=== PATIENT | female | born 1985 | race Caucasian/White ===

== ENCOUNTER → 2019-06-04 16:28 | Observation (INO) ==
[2019-06-04 14:58] LABS: Amphetamine Screen,Urine Negative ng/mL (Cutoff=1000); Barbiturate Screen,Urine Negative ng/mL (Cutoff=200); Benzodiazepines Screen,Urine Negative ng/mL (Cutoff=200); Cannabinoid Screen,Urine Negative ng/mL (Cutoff = 50); Cocaine Screen,Urine Negative ng/mL (Cutoff= 300); Opiate Screen,Urine Negative ng/mL (Cutoff=300); Phencyclidine Screen,Urine Negative ng/mL (Cutoff=25)
[~2019-06-04 16:28] MED LIST: Ringers Solution, Lactated 1,000 ML IVC ONE; Ringers Solution, Lactated 1,000 ML ONE
== END | disposition home or self-care (01) ==
LOC: 1NENULAB
PROVIDERS: ADMIT Advanced Practice Midwife; ATTEND Advanced Practice Midwife

== ENCOUNTER 2019-06-07 07:34 | Inpatient (IN) ==
[2019-06-07] MEDS ORDERED: Ringers Solution, Lactated 1,000 ML ONE ×3 (07:59→09:15)
--- NOTE | 2019-06-07 08:01 | Anesthesia Evaluation PreOp ---
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: Other ([place], BMI 40) Other Medical History: Denies Any Significant HX Anesthesia History: No Prior Anesthetic Complications, Past Anesthesia (previous epidural conversion to , no known family comp) Alcohol Use: none Drug use: none Medications and Allergies Pnv Plus Multivit Tab 1 tab PO DAILY 06/04/19 [History] metFORMIN 1,000 mg PO BID 06/04/19 [History] Allergy/AdvReac Type Severity Reaction Status Date / Time No Known Allergies Allergy Verified 06/07/19 08:14 Anesthesia Exam - HEENT Pupil (Motor): Pupils equal Mallampati: II Teeth: Normal Oral Opening: Greater than 3 - 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
[2019-06-07] MEDS ORDERED: *HR* Oxytocin 10 UNIT/ML VIAL IM ONE (08:10)
[2019-06-07] MEDS ORDERED: *HR* Morphine Sulfate/PF 10 MG/10 ML AMPUL ONE (08:11)
[2019-06-07] MEDS ORDERED: *HR* FentaNYL (PF) 100 MCG/2 ML VIAL ONE (08:11)
[2019-06-07] MEDS ORDERED: EPHEDrine 50 MG/ML VIAL ONE (08:12)
[2019-06-07] MEDS ORDERED: Lidocaine -MPF 2% 5 ML VIAL ONE (08:13)
[2019-06-07] MEDS ORDERED: Metoclopramide 10 MG/2 ML VIAL IVP ONE (08:25)
[2019-06-07] MEDS ORDERED: CeFAZolin Syr 3,000MG/30 ML 3,000 MG/30 ML SYRINGE IVPB ONE (08:25)
[2019-06-07] MEDS ORDERED: Oxytocin 20 units/ LR 1000 mL 20 UNIT/1,000 ML BAG IVC ONE (08:25)
[2019-06-07] MEDS ORDERED: Famotidine 20 MG/2 ML VIAL IVP ONE (08:25)
[2019-06-07] MEDS ORDERED: Oxytocin 20 units/ LR 1000 mL 20 UNIT/1,000 ML BAG IVC SCH ×2 (08:30→19:51)
[2019-06-07 08:50] LABS: Basophils % 0.1 %; Eosinophils # 0.1 K/mcL (0.0-0.6); Eosinophils % 0.7 %; Hematocrit 31.6 % (35.3-44.9); Hemoglobin 10.2 g/dL (11.5-15.4); Immature Granulocytes % 0.4 % (0-4); Lymphocytes # 1.6 K/mcL (0.6-4.6); Lymphocytes % 21.7 %; Mean Corpuscular HGB Conc 32.3 g/dL (31.6-35.5); Mean Corpuscular Hemoglobin 28.3 pg (28.0-33.3); Mean Corpuscular Volume 87.8 fL (83.0-100.0); Monocytes # 0.5 K/mcL (0.0-1.3); Monocytes % 6.6 %; Neutrophils # 5.1 K/mcL (1.6-8.9); Platelet Count 176 K/mcL (140-400); Red Cell Distribution Width 16.3 % (11.5-14.5); Segmented Neutrophils % 70.5 %; White Blood Count 7.3 K/mcL (4.3-11.1)
[2019-06-07 08:58] LABS: Amphetamine Screen,Urine Negative ng/mL (Cutoff=1000); Barbiturate Screen,Urine Negative ng/mL (Cutoff=200); Benzodiazepines Screen,Urine Negative ng/mL (Cutoff=200); Cannabinoid Screen,Urine Negative ng/mL (Cutoff = 50); Cocaine Screen,Urine Negative ng/mL (Cutoff= 300); Opiate Screen,Urine Negative ng/mL (Cutoff=300); Phencyclidine Screen,Urine Negative ng/mL (Cutoff=25)
--- NOTE | 2019-06-07 09:26 | OB/GYN History & Physical ---
Date of Encounter: 06/07/19 Time of Encounter: 09:24 Assessment and Plan (1) Previous section Current visit: Yes Status: Chronic (2) Gestational diabetes Current visit: Yes Status: Chronic Qualifiers: Gestational diabetes mellitus control: oral hypoglycemic-controlled Trimester: third trimester Qualified Code(s): O24.415 - Gestational diabetes mellitus in , controlled by oral hypoglycemic drugs (3) 39 weeks gestation of Current visit: No Status: Chronic History of Present Illness HPI: Ms. Chapin is a 33 year old female Patient is a 33-year-old 2 para 1 white female at 39 weeks admitted for repeat low transverse section. She been followed in my office with her gestational diabetes has been controlled on metformin 1000 twice a day. She denies spontaneous rupture membranes vaginal bleeding. She reports active fetus. She denies contractions. Past Med Surg Social Fam HX - Past Medical History Medical history: no medical history Psychiatric history: no psych history - Past Surgical History Surgical History: no surgical history Additional surgical history: . Hernia repair as a child - Social History Smoking Status: Never smoker Smokeless Tobacco Status: No Alcohol use: none Drug use: none - Family History Mother Living Status: Still Living Hx Family Cardiac Disorders: No Hx Family Respiratory Disorders: Yes (copd) Hx Family Endocrine Disorder: Yes (Borderline DM) Obstetrical History - Pregnancies : 2 Para: 1 Medications and Allergies Pnv Plus Multivit Tab 1 tab PO DAILY 06/04/19 [History] metFORMIN 1,000 mg PO BID 06/04/19 [History] 3 Allergy/AdvReac Type Severity Reaction Status Date / Time No Known Allergies Allergy Verified 06/07/19 08:14 Review of System OB All systems PM: reviewed and no additional remarkable complaints except as stated - Genitourinary Genitourinary: amenorrhea - Menstruation Menstruation: amenorrhea Exam - Constitutional Constitutional: well developed, well nourished, no acute distress, obese - HEENT HEENT: Normocephaly - Neck Neck exam: full ROM - Lungs Respiratory exam: CTAB - Cardiovascular Cardiovascular exam: RRR - Abdomen Abdomen: Present: bowel sounds normal, gravid, non tender - Extremities Extremities exam: full ROM Deep Tendon Reflex Grade: 2+ Normal Results Result Diagrams: 06/07/19 08:40 Abnormal lab results RBC 3.60 M/mcL (3.82-4.97) L 06/07/19 08:40 Hgb 10.2 g/dL (11.5-15.4) L 06/07/19 08:40 Hct 31.6 % (35.3-44.9) L 06/07/19 08:40 RDW 16.3 % (11.5-14.5) H 06/07/19 08:40 All other labs normal. - Attending Attestation paula armstrong md [facility]
[2019-06-07] MEDS ORDERED: ceFAZolin 2,000 MG in Water for inj. (sterile) 20 ML IVP ONE (09:39)
--- NOTE | 2019-06-07 11:19 | OB/GYN Procedure Note ---
Section - Date of procedure: 06/07/19 Preop diagnosis: desires repeat Post-op diagnosis: same Procedure: repeat low transverse Surgeon: Joss Pino Blood Loss: 500 Was there an ophthalmic medical assistant present: No Anesthesia Type: Spinal section complications: none Disposition: PACU Specimens: Placenta - Infant (s) A Infant Delivery Date: 06/07/19 Infant Delivery Time: 10:16 Presentation: vertex Position: OA Gender: Female Viability: Viable Pounds: 7 Ounces: 12 at 1 minute: 8 at 5 minutes: 9 Shoulder Dystocia: not encountered Placenta: complete extraction Cord: nuchal cord, nuchal reduced - Narrative Narrative: Patient was taken to the operating room. After satisfactory spinal anesthesia was achieved, patient placed in supine position Short catheter inserted and prepped and draped in usual manner. After appropriate timeout abdomen was entered through standard Maylard incision. The Arline retractor was placed. Peritoneum overlying the lower uterine segment was incised in U-shaped fashion. Uterine cavity was entered sharply and extended laterally. Fluid was clear. With fundal pressure the head was delivered. Nuchal cord was loose and was relieved. Shoulders torso remainder the were delivered. The umbilical cord double clamped and cut and the was handed to nursery staff for further evaluation. Placenta was removed. Uterus was brought from within the abdominal cavity. Uterus closed with 0 Monocryl in a single layer. After assurance hemostasis, uterus placed back within the abdominal cavity. Retractor was removed. A 0 strata fix PDS was used on the fascia. Subcutaneous reapproximated with a 2-0 Monocryl. 3-0 Monocryl was used on the skin. Sterile dressing was applied. Patient did well was taken to recovery room in satisfactory condition. Counts were correct.
--- NOTE | 2019-06-07 17:25 | Anesthesia Evaluation Post Op ---
Date of Encounter: 06/07/19 Time of Encounter: 14:15 - Vital Signs Vital Signs: vss - Lungs Lungs: Clear Ascult./Percussion - Airway Airway: Non-obstructed - Cardiovascular Baseline Rhythm - Mental Status Mental Status: Alert & Oriented, Answers Appropriately - Pain Pain Scale used: Aaliyah (Faces) - Nausea Vomiting Nausea Vomiting: Not Present - Hydration Hydration: Tolerates oral liquids - Discharge PostOp Status: Transfer Patient to floor
[2019-06-07] MEDS ORDERED: Metoclopramide 10 MG/2 ML VIAL IVP PRN (19:51)
[2019-06-07] MEDS ORDERED: Ondansetron 4 MG/2 ML VIAL IVP PRN (19:51)
[2019-06-07] MEDS ORDERED: Sennosides 8.6 MG TABLET PO PRN (19:51)
[2019-06-07] MEDS ORDERED: Rho Immune Globulin 1,500 UNIT SYRINGE IM PRN (19:51)
[2019-06-08] MEDS: Ibuprofen 600 MG TABLET PO SCH ×3 (00:58→19:10)
[2019-06-08] MEDS: Acetaminophen 325 MG TABLET PO SCH ×2 (00:59→06:05)
[2019-06-08] MEDS ORDERED: Lanolin 7 G OINT...G. TP PRN (01:00)
[2019-06-08] MEDS: *HR* OxyCODONE/APAP 5/325 TABLET PO PRN ×3 (06:05→19:11)
[2019-06-08 08:13] LABS: Eosinophils # 0.1 K/mcL (0.0-0.6); Hematocrit 31.4 % (35.3-44.9); Hemoglobin 9.9 g/dL (11.5-15.4); Immature Granulocytes % 0.5 % (0-4); Lymphocytes # 1.2 K/mcL (0.6-4.6); Mean Corpuscular HGB Conc 31.5 g/dL (31.6-35.5); Mean Corpuscular Hemoglobin 28.4 pg (28.0-33.3); Mean Corpuscular Volume 90.2 fL (83.0-100.0); Monocytes # 0.3 K/mcL (0.0-1.3); Monocytes % 5.9 %; Neutrophils # 4.2 K/mcL (1.6-8.9); Platelet Count 167 K/mcL (140-400); Red Blood Count 3.48 M/mcL (3.82-4.97); Red Cell Distribution Width 16.5 % (11.5-14.5); Segmented Neutrophils % 72.6 %; White Blood Count 5.8 K/mcL (4.3-11.1)
[2019-06-08] MEDS ORDERED: NON-FORMULARY MEDICATION 1 EACH EACH (Pnv Prenatal Plus Multivit Tab 1 TAB) PO SCH (09:00)
[2019-06-08] MEDS: Prenatal Vit/FA 1 EACH TABLET PO SCH (12:53)
--- NOTE | 2019-06-08 16:17 | OB/GYN Progress Note ---
Date of Encounter: 06/08/19 Time of Encounter: 16:15 - Assessment and Plan (1) Status post repeat low transverse section Current Visit: Yes Status: Acute Continue routine /postop care meeting day 1 milestones (2) Breast feeding status of mother Current Visit: Yes Status: Acute support prn Subjective - Subjective Principal diagnosis: status post repeat c/s Interval history: Patient postop day one. Patient doing well. Patient reports pain is well controlled. Patient ambulating without difficulty. Patient is breast feeding. Patient reports: appetite normal, voiding normally, pain well controlled, ambulating normally : doing well, nursing well Objective - Vital Signs Latest vital signs: Vital Signs Temp Pulse Resp BP Pulse Ox 06/08/19 08:18 98.4 F 81 16 115/71 96 06/08/19 00:57 98.1 F 86 16 102/60 96 06/07/19 21:35 98.7 F 85 16 98/59 96 06/07/19 16:30 97.6 F 73 16 118/73 98 Intake and Output 06/08/19 06/08/19 06/08/19 07:59 15:59 23:59 Output Total 2200 / 2700 500 / 2700 Balance -2200 / -2700 -500 / -2700 Output: Urine 500 / 500 Catheter 2200 / 2200 Other: Weight 103.782 kg Patient Weight 06/08/19 23:59 Weight 103.782 kg - Exam Lungs: bilateral: normal Chest: Normal S1, Normal S2 Extremities: Present: normal Abdomen: Present: normal appearance, soft, gravid Incision: Present: normal, dry, dressed (FUNMI) Uterus: Present: normal, firm Fundal Height: 2 (U/2) - Labs Labs: Laboratory Results - last 24 hr 06/08/19 06/08/19 07:52 07:52 WBC 5.8 RBC 3.48 L Hgb 9.9 L Hct 31.4 L MCV 90.2 MCH 28.4 MCHC 31.5 L RDW 16.5 H Plt Count 167 MPV 11.0 Immature Gran % 0.5 Seg Neutrophils % 72.6 Lymphocytes % 20.0 Monocytes % 5.9 Eosinophils % 1.0 Basophils % 0.0 Neutrophils # 4.2 Lymphocytes # 1.2 Monocytes # 0.3 Eosinophils # 0.1 Basophils # 0.0 Glucose 77
[2019-06-08] MEDS: Simethicone 80 MG TAB.CHEW PO PRN (19:11)
[2019-06-09] MEDS: *HR* OxyCODONE/APAP 5/325 TABLET PO PRN ×2 (01:16→10:35)
[2019-06-09] MEDS: Acetaminophen 325 MG TABLET PO SCH (01:16)
[2019-06-09 09:50] VITALS: BP 110/72
[2019-06-09] MEDS: Prenatal Vit/FA 1 EACH TABLET PO SCH (10:34)
[2019-06-09] MEDS: Ibuprofen 600 MG TABLET PO SCH (10:34)
[2019-06-09] MEDS: Simethicone 80 MG TAB.CHEW PO PRN (10:35)
--- NOTE | 2019-06-09 12:54 | Discharge Summary ---
Date of Encounter: 06/09/19 Time of Encounter: 12:52 - Discharge Diagnosis (1) Status post repeat low transverse section Priority: Primary Status: Acute Comments: Patient meeting day two milestones. Pain well-controlled with prescribed medications. Voiding without difficulty, tolerating regular diet, bleeding light. No bowel movement yet. Anticipate discharge today OAR[facility] report reviewed and appropriate (2) Gestational diabetes Priority: Secondary Status: Chronic Comments: Follow up in 4-12 weeks for 2-hr GTT Qualifiers: Gestational diabetes mellitus control: oral hypoglycemic-controlled Trimester: third trimester Qualified Code(s): O24.415 - Gestational diabetes mellitus in , controlled by oral hypoglycemic drugs (3) Breast feeding status of mother Priority: Secondary Status: Acute Comments: support as needed. Patient has a breast pump at home. - Discharge Medications Prescriptions: New Ibuprofen [Motrin] 600 mg PO Q6HR #60 tablet OxyCODONE/APAP 5/325 [Percocet 5/325 MG] 1 each PO Q6H PRN 7 Days #28 tab PRN Reason: Moderate pain 4-6 Acetaminophen [Tylenol] 325 mg PO Q6HR tablet Docusate [Colace] 100 mg PO BID #60 capsule Simethicone [Gas-X] 80 mg PO TID PRN tab.chew PRN Reason: Dyspepsia Lanolin [Lansinoh] 1 appl TP TID PRN oint...g. PRN Reason: nipple pain Continued Pnv Plus Multivit Tab 1 tab PO DAILY Discontinued metFORMIN 1,000 mg PO BID Home Medications: Pnv Plus Multivit Tab 1 tab PO DAILY 06/04/19 [History] Acetaminophen [Tylenol] 325 mg PO Q6HR tablet 06/09/19 [Rx] Docusate [Colace] 100 mg PO BID #60 capsule 06/09/19 [Rx] Ibuprofen [Motrin] 600 mg PO Q6HR #60 tablet 06/09/19 [Rx] Lanolin [Lansinoh] 1 appl TP TID PRN oint...g. 06/09/19 [Rx] OxyCODONE/APAP 5/325 [Percocet 5/325 MG] 1 each PO Q6H PRN 7 Days #28 tab 06/09/19 [Rx] Simethicone [Gas-X] 80 mg PO TID PRN tab.chew 06/09/19 [Rx] Allergies/Adverse Reactions: Allergy/AdvReac Type Severity Reaction Status Date / Time No Known Allergies Allergy Verified 06/07/19 08:14 Data Procedures and tests throughout hospitalization: Laboratory Tests 06/07/19 06/07/19 06/07/19 08:40 08:40 09:27 WBC 7.3 RBC 3.60 L Hgb 10.2 L Hct 31.6 L MCV 87.8 MCH 28.3 MCHC 32.3 RDW 16.3 H Plt Count 176 MPV 11.0 Immature Gran % 0.4 Seg Neutrophils % 70.5 Lymphocytes % 21.7 Monocytes % 6.6 Eosinophils % 0.7 Basophils % 0.1 Neutrophils # 5.1 Lymphocytes # 1.6 Monocytes # 0.5 Eosinophils # 0.1 Basophils # 0.0 Glucose POC Glucose 78 Urine Opiates Screen Negative Ur Buprenorphine Scrn Negative Ur Barbiturates Screen Negative Ur Phencyclidine Scrn Negative Ur Amphetamines Screen Negative U Benzodiazepines Scrn Negative Urine Cocaine Screen Negative U Marijuana (THC) Screen Negative Ur Drug Screen Interp See Below 06/08/19 06/08/19 07:52 07:52 WBC 5.8 RBC 3.48 L Hgb 9.9 L Hct 31.4 L MCV 90.2 MCH 28.4 MCHC 31.5 L RDW 16.5 H Plt Count 167 MPV 11.0 Immature Gran % 0.5 Seg Neutrophils % 72.6 Lymphocytes % 20.0 Monocytes % 5.9 Eosinophils % 1.0 Basophils % 0.0 Neutrophils # 4.2 Lymphocytes # 1.2 Monocytes # 0.3 Eosinophils # 0.1 Basophils # 0.0 Glucose 77 POC Glucose Urine Opiates Screen Ur Buprenorphine Scrn Ur Barbiturates Screen Ur Phencyclidine Scrn Ur Amphetamines Screen U Benzodiazepines Scrn Urine Cocaine Screen U Marijuana (THC) Screen Ur Drug Screen Interp Date of admission: 06/07/19 07:34 Primary care physician: PCP NONE Discharging clinician: Yashira Mcbride Anticipated date of discharge: 06/09/19 - Patient Status Disposition: Home, Self-Care Condition: Good Functional capacity at discharge: independent ambulation Overall status at discharge: patient is progressing back to baseline - Discharge Instructions Follow Up With: NONE,PCP [Primary Care Provider] - Joss Darden MD [Partnered Physician] - - Diet and Activity Activity: resume usual activities as tolerated Diet: regular diet Hospital Course Reason for admission: section Delivery: section Episiotomy: none Laceration: none Other procedures: none complications: none Discharge diagnosis: IUP at term delivered [place] baby: female Hospital course: Date of procedure: 06/07/19 Preop diagnosis: desires repeat Post-op diagnosis: same Procedure: repeat low transverse Surgeon: Joss Pino Blood Loss: 500 Was there an telecom assistant present: No Anesthesia Type: Spinal section complications: none Disposition: PACU Specimens: Placenta - (s) A Infant Delivery Date: 06/07/19 Infant Delivery Time: 10:16 Presentation: vertex Position: OA Gender: Female Viability: Viable Pounds: 7 Ounces: 12 at 1 minute: 8 at 5 minutes: 9 Shoulder Dystocia: not encountered Placenta: complete extraction Cord: nuchal cord, nuchal reduced - Narrative Narrative: Patient was taken to the operating room. After satisfactory spinal anesthesia was achieved, patient placed in supine position Short catheter inserted and prepped and draped in usual manner. After appropriate timeout abdomen was entered through standard Maylard incision. The Arline retractor was placed. Peritoneum overlying the lower uterine segment was incised in U-shaped fashion. Uterine cavity was entered sharply and extended laterally. Fluid was clear. With fundal pressure the head was delivered. Nuchal cord was loose and was relieved. Shoulders torso remainder the infant were delivered. The umbilical cord double clamped and cut and the infant was handed to nursery staff for further evaluation. Placenta was removed. Uterus was brought from within the abdominal cavity. Uterus closed with 0 Monocryl in a single layer. After assurance hemostasis, uterus placed back within the abdominal cavity. Retractor was removed. A 0 strata fix PDS was used on the fascia. Subcutaneous reapproximated with a 2-0 Monocryl. 3-0 Monocryl was used on the skin. Sterile dressing was applied. Patient did well was taken to recovery room in satisfactory condition. Counts were correct. Time Attestation: Total time spent providing and/or coordinating discharge services: Time Spent: Less than 30 minutes - VTE Documentation of Mechanical Device: Intermittent pneumatic compression device Exam - Constitutional Vitals: Temp Pulse Resp BP Pulse Ox 97.9 F 76 16 110/72 95 08/18/19 08:20 06/09/19 08:20 06/09/19 10:58 06/09/19 08:20 06/09/19 08:20 General appearance IM: A&O X 3, pleasant, no acute distress, answers questions appropriately - Respiratory Respiratory exam: Present: CTAB. Absent: respiratory distress - Cardiovascular Cardiovascular exam IM: Present: RRR, +S1, +S2. Absent: irregular rhythm - GI/Abdominal GI/Abdominal exam IM: normal bowel sounds, soft Incision: dressed (FUNMI) - Rectal Rectal exam: deferred - External exam: normal external exam Uterine Tone: Firm Uterus Position: At Umbilicus, Midline - Extremities Exam Extremities exam IM: Present: full ROM, normal capillary refill, normal inspection. Absent: calf tenderness - Neurological Exam Neurological exam: alert, normal gait, oriented X3
== END 2019-06-09 13:39 | disposition home or self-care (01) | DRG 788 ==
LOC: 1NENULAB 07:34 → 1NENUOBS 13:16
PROVIDERS: ADMIT Obstetrics & Gynecology; ATTEND Obstetrics & Gynecology